=== PATIENT | male | born 1975 | race Caucasian/White ===

== ENCOUNTER 2019-07-22 20:08 | Emergency (ER) | payer BC ==
[~2019-07-22] VITALS: Ht 170.2 cm; Wt 86.4 kg
[2019-07-22 21:04] LABS: BASOPHILS % (AUTO) 0.5 % (0-1); EOSINOPHILS # (AUTO) 0.3 X10'3 (0-0.9); EOSINOPHILS % (AUTO) 3.5 % (0-6); HEMATOCRIT 42.3 % (42.0-52.0); HEMOGLOBIN 14.7 g/dl (14.0-17.9); LYMPHOCYTES # (AUTO) 1.5 X10'3 (1.1-4.8); LYMPHOCYTES % (AUTO) 19.5 % (21-51); MEAN CORPUSCULAR HEMOGLOBIN 30.8 PG (27.0-31.0); MEAN CORPUSCULAR HGB CONC 34.8 g/dL (33.0-36.5); MEAN CORPUSCULAR VOLUME 88.5 FL (78-98); MEAN PLATELET VOLUME 7.9 FL (7.4-10.4); MONOCYTES # (AUTO) 0.4 X10'3 (0-0.9); MONOCYTES % (AUTO) 5.6 % (2-12); NEUTROPHILS # (AUTO) 5.4 X10'3 (1.8-7.7); NEUTROPHILS % (AUTO) 70.9 % (42-75); PLATELET COUNT 306 X10'3 (140-440); RED BLOOD COUNT 4.78 X10'6 (4.70-6.10); RED CELL DISTRIBUTION WIDTH 13.2 % (11.5-14.5); WHITE BLOOD COUNT 7.7 X10'3 (4.5-11.0)
[2019-07-22 21:18] LABS: URINE AMPHETAMINE SCREEN NEGATIVE (Neg); URINE BARBITUATE SCREEN NEGATIVE (Neg); URINE BENZODIAZEPINES SCREEN NEGATIVE (Neg); URINE CANNABINOID SCREEN NEGATIVE (Neg); URINE COCAINE SCREEN NEGATIVE (Neg); URINE METHADONE SCREEN NEGATIVE (Neg); URINE OPIATE SCREEN NEGATIVE (Neg); URINE PHENCYCLIDINE SCREEN NEGATIVE (Neg)
[2019-07-22 21:22] LABS: ALANINE AMINOTRANSFERASE 14 U/L (12-78); ALBUMIN 3.5 G/DL (3.4-5.0); ALBUMIN/GLOBULIN RATIO 0.8 (1.1-1.5); ALKALINE PHOSPHATASE 81 IU/L (46-116); ANION GAP 8 (8-16); ASPARTATE AMINO TRANSFERASE 15 U/L (10-37); BILIRUBIN,TOTAL 0.4 MG/DL (0.1-1.0); BLOOD UREA NITROGEN 13 MG/DL (7-18); BUN/CREATININE RATIO 13.7 (5.4-32.0); CALCIUM 8.9 MG/DL (8.5-10.1); CHLORIDE 100 MMOL/L (99-107); CREATININE 0.95 MG/DL (0.60-1.10); ETHANOL < 0.010 GM/DL (0.0-0.010); GLUCOSE 333 MG/DL (70-104); POTASSIUM 3.1 MMOL/L (3.5-5.1); SODIUM 137 MMOL/L (135-145); TOTAL CARBON DIOXIDE 29.2 MMOL/L (24-32); eGFR 86 ML/MIN
[2019-07-22 21:25] LABS: HEMOGLOBIN A1C 9.3 % (4.5-6.2)
--- NOTE | 2019-07-22 22:50 | NUR ---
Called [facility] to discover that no consult had been initiated on the patient. Consult initiated and they will have the neurologist call.
--- NOTE | 2019-07-22 22:59 | NUR ---
Dr Cortez, neurologist called via phone for info on the pt. He will be doing the consult with the pt shortly.
[2019-07-22] MEDS ORDERED: valproate sod inj 1,000 MG in normal saline 100ml IV soln 90 ML IV ONE (23:25)
[2019-07-22] MEDS ORDERED: enalaprilat dihydrate 2.5mg/2ml vial IV ONE (23:25)
--- NOTE | 2019-07-22 23:27 | NUR ---
Pt states that the neurologist came on the camera.
[2019-07-22] MEDS ORDERED: LISI-600 PO (23:34)
[2019-07-22] MEDS ORDERED: VALP250C3 PO (23:34)
--- NOTE | 2019-07-23 00:22 | NUR ---
Pt has not had any seizure activity since arriving to the ED.
--- NOTE | 2019-07-23 00:53 | NUR ---
Dr Richard at bedside explaining d/c instructions in depth. This RN also spoke with the pt's outside letting her know that they need to find a doctor for the pt on Thursday to monitor his meds and order some further outpatient tests.
[2019-07-23 00:55] VITALS: BP 176/113
== END 2019-07-23 01:09 | disposition home or self-care (01) ==
LOC: ER 20:09
DX: R56.9 Unspecified convulsions (principal); I10 Essential (primary) hypertension; E11.65 Type 2 diabetes mellitus with hyperglycemia; Z79.899 Other long term (current) drug therapy
CPT/HCPCS: 36415; 70450; 80053; 80305; 80320; 83036; 85025; 96365; 96375; 99285